=== PATIENT | female | born 1995 | race Caucasian/White ===

== ENCOUNTER 2016-12-29 16:59 | Emergency (ER) | payer MEDICAID ==
[~2016-12-29] VITALS: Ht 160 cm; Wt 62.2 kg
[2016-12-29 17:37] VITALS: BP 111/69
[2016-12-29 18:19] LABS: BASOPHILS # (AUTO) 0.1 K/uL (0.00-0.22); BASOPHILS % (AUTO) 1.1 % (0.0-2.0); EOSINOPHILS # (AUTO) 0.6 K/uL (0-0.4); EOSINOPHILS % (AUTO) 5.2 % (0.0-4.0); HEMATOCRIT 37.2 % (36-48); HEMOGLOBIN 12.7 g/dL (12.0-16.0); LYMPHOCYTES # (AUTO) 2.2 K/uL (2.5-16.5); LYMPHOCYTES % (AUTO) 19.7 % (20.5-51.1); MEAN CORPUSCULAR HEMOGLOBIN 29 pg (27-31); MEAN CORPUSCULAR HGB CONC 34 g/dL (33-37); MEAN CORPUSCULAR VOLUME 84 fL (80-94); MONOCYTES # (AUTO) 0.7 K/uL (0.8-1.0); MONOCYTES % (AUTO) 6.3 % (1.7-9.3); NEUTROPHILS # (AUTO) 7.7 K/uL (1.8-7.7); NEUTROPHILS % (AUTO) 67.7 % (42.2-75.2); PLATELET COUNT (AUTO) 189 K/uL (140-450); RED BLOOD CELL COUNT(AUTO) 4.44 MIL/uL (4.20-5.40); RED CELL DISTRIBUTION WIDTH 13.1 % (11.6-13.7); WHITE BLOOD COUNT (AUTO) 11.3 K/uL (4.5-11.0)
[2016-12-29 18:21] LABS: BILIRUBIN,URINE NEGATIVE (NEGATIVE); BLOOD, URINE 2+ (NEGATIVE); COLOR,URINE YELLOW (YELLOW); LEUKOCYTE ESTERASE ,URINE NEGATIVE (NEGATIVE); NITRITE, URINE NEGATIVE (NEGATIVE); PH,URINE 6.5 (5.0-9.0); UGLUCOSE NEGATIVE (NEGATIVE)
[2016-12-29 18:25] LABS: APPEARANCE,URINE HAZY (CLEAR)
[2016-12-29 18:31] LABS: RBC,URINE 20-50 /HPF (0-5)
[2016-12-29 18:32] LABS: WBC,URINE 0-5 (RARE) /HPF (0-5)
--- NOTE | 2016-12-29 18:59 | NUR ---
Patient to bed 08.
--- NOTE | 2016-12-29 19:17 | NUR ---
PT IN BED WITH US AT BEDSIDE BEING DONE. PT STATES PAIN AT 3/10. PT C/O VAG BLEED AROUND 4PM THIS AFTERNOON. PT STATES SHE IS 5 MONTHS . LMP 09/06/16. BS CLEAR. AAO X 4. SKIN IS INTACT. BEDRAILS UP. MD MADE AWARE OF PT STATUS.
--- NOTE | 2016-12-29 19:24 | NUR ---
[facility] in ED - 12/29/16 at 1932 by [facility] Patient being evaluated by SDr. Sousa at bedside.
--- NOTE | 2016-12-29 19:32 | NUR ---
Patient being evaluated by Dr. Sousa at bedside.
[2016-12-29 19:37] LABS: PROTHROMBIN TIME 9.4 secs (10.8-13.4)
--- NOTE | 2016-12-29 19:45 | NUR ---
VAG EXAM PERFORMED BY DR. HARGROVE. PT TOLERATED.
[2016-12-29 19:47] LABS: CARBON DIOXIDE 23.4 mmol/L (21-32); CREATININE 0.6 mg/dL (0.6-1.3); POTASSIUM 3.4 mmol/L (3.5-5.1); THYROID STIMULATING HORMONE 2.33 uIU/mL (0.34-3.74); TOTAL BILIRUBIN 0.2 mg/dL (0.0-1.0)
--- NOTE | 2016-12-29 20:03 | NUR ---
Pelvic exam performed by Dr. Sousa at bedside.
--- NOTE | 2016-12-29 20:19 | NUR ---
Patient discharged with v/s stable. Written and verbal after care instructions given and explained. Patient verbalized understanding. Ambulatory with steady gait. All questions addressed prior to discharge. Advised to follow up with PMD.
[2016-12-29 20:20] VITALS: BP 126/67
== END 2016-12-29 20:19 | disposition home or self-care (01) ==
LOC: MED 16:59
DX: O20.0 Threatened abortion (principal); Z3A.16 16 weeks gestation of pregnancy
CPT/HCPCS: 36415; 76805; 80053; 81001; 81025; 84443; 84702; 85025; 85610; 85730; 86900; 86901; 99285; Q0092

== ENCOUNTER 2017-02-17 20:26 | Emergency (ER) | payer MEDICAID ==
[~2017-02-17] VITALS: Ht 160 cm; Wt 63.5 kg
[2017-02-17 20:41] VITALS: BP 124/72
--- NOTE | 2017-02-17 20:55 | NUR ---
TO LOBBY AMB, V/S STABLE, MEDICATED, EKG DONE, A/W FOR BED, ERMD NOTED
[2017-02-17] MEDS ORDERED: ACETAMINOPHEN 325 MG TAB ONE (20:57)
--- NOTE | 2017-02-18 01:06 | NUR ---
PT TAKEN TO OF
[2017-02-18] MEDS ORDERED: ACETAMINOPHEN EXTRA STRENGTH 500 MG TAB PO ONE (02:15)
[2017-02-18 02:28] VITALS: BP 101/67
--- NOTE | 2017-02-18 02:28 | NUR ---
Patient discharged with v/s stable. Written and verbal after care instructions given and explained. Patient alert, oriented and verbalized understanding of instructions. Ambulatory with steady gait. All questions addressed prior to discharge. ID band removed. Patient advised to follow up with PMD. Rx of Tamiflu given. Patient educated on indication of medication including possible reaction and side effects. Opportunity to ask questions provided and answered.
== END 2017-02-18 02:28 | disposition home or self-care (01) ==
LOC: MED 20:26
DX: J09.X2 Influenza due to identified novel influenza A virus with other respiratory manifestations (principal)
CPT/HCPCS: 36415; 81002; 81025; 87081; 87804; 99284